=== PATIENT | male | born 1945 | race Hispanic/Latino ===

== ENCOUNTER 2021-06-26 08:25 | Day surgery (SDC) | payer OTHER ==
[2021-06-19 11:59] LABS: BASOPHILS % (AUTO) 0.7 % (0.0-5.0); EOSINOPHILS % (AUTO) 3.1 % (0.0-8.0); HEMATOCRIT 41.3 % (42-54); LYMPHOCYTES % (AUTO) 33.2 % (21.0-51.0); MEAN CORPUSCULAR HEMOGLOBIN 30.2 pg (27.0-33.0); MEAN CORPUSCULAR HGB CONC 33.4 g/dL (32.0-36.0); MEAN CORPUSCULAR VOLUME 90.4 fL (79-99); MONOCYTES % (AUTO) 9.5 % (3.0-13.0); NEUTROPHILS % (AUTO) 53.3 % (40.0-77.0); PLATELET COUNT (AUTO) 225 K/uL (130-400); RED BLOOD CELL COUNT(AUTO) 4.57 MIL/uL (4.50-6.20); WHITE BLOOD COUNT (AUTO) 4.2 K/uL (4.8-10.8)
[2021-06-19 12:06] LABS: CREATININE 0.6 mg/dL (0.5-1.5); POTASSIUM 4.3 mmol/L (3.5-5.1)
[2021-06-19 12:07] LABS: INR 1.04 (0.85-1.15); PROTHROMBIN TIME 11.3 SEC (9.6-11.6)
[2021-06-19 12:08] LABS: PARTIAL THROMBOPLASTIN TIME 27.1 SEC (26.3-35.5)
[2021-06-25 11:34] VITALS: BP 153/84
[~2021-06-26] VITALS: Ht 172.7 cm; Wt 94.6 kg
[2021-06-26] VITALS (14 sets, daily range): BP systolic 118–161; BP diastolic 59–86
[~2021-06-26 08:25] MED LIST: CEFAZOLIN SODIUM 1 GM VIAL IVP ONE; LISI20TA24 PO; METF-446 PO; PHEN100C23 PO
[2021-06-26] MEDS ORDERED: 0.9%NACL 1000ML 1,000 ML IV ONE (09:05)
[2021-06-26] MEDS ORDERED: CEFAZOLIN SODIUM 1 GM VIAL ONE (09:05)
[2021-06-26] MEDS ORDERED: LIDOCAINE PF 100MG/5ML (2%) SYRINGE 5ML ONE (11:13)
[2021-06-26] MEDS ORDERED: PROPOFOL 10 MG/ML 20ML VIAL IV ONE (11:14)
[2021-06-26] MEDS ORDERED: MIDAZOLAM HCL 1 MG/ML 2ML VIAL ONE (11:14)
[2021-06-26] MEDS ORDERED: ROCURONIUM 10MG/1ML SYR 10 MG/ML ML ONE (11:14)
[2021-06-26] MEDS ORDERED: FENTANYL CITRATE PF 50 MCG/1 ML 2ML VIAL ONE (11:17)
[2021-06-26] MEDS ORDERED: NEOMY SULF/BACITRAC ZN/POLY OINT 30GM TUBE TP ONE (11:18)
[2021-06-26] MEDS ORDERED: BUPIVACAINE/PF 0.25% 30ML VIAL IJ ONE (11:18)
[2021-06-26] MEDS ORDERED: GLYCOPYRROLATE 1 MG/5 ML SYRINGE ONE (12:15)
[2021-06-26] MEDS ORDERED: NEOSTIGMINE 5MG/5ML SYR IV ONE (12:15)
== END 2021-06-26 13:45 | disposition home or self-care (01) ==
LOC: DAH 08:25
PROVIDERS: ATTEND Urology
DX: N47.1 Phimosis (principal); I10 Essential (primary) hypertension; E11.9 Type 2 diabetes mellitus without complications; M19.90 Unspecified osteoarthritis, unspecified site; Z79.01 Long term (current) use of anticoagulants; Z79.899 Other long term (current) drug therapy
CPT/HCPCS: 36415; 54161; 71045; 80048; 80185; 82948; 85025; 85610; 85730; 87635; 93005; 99282; A4215 ×2; A4221 ×2; A4222 ×2; A4223 ×2; A4600; A4606; A4663 ×2; A6260; C9803; J0690; J2001; J2250; J2704; J2710; J3010; J3490 ×2; J7030

== ENCOUNTER 2021-06-26 17:08 | Emergency (ER) | payer OTHER ==
[~2021-06-26] VITALS: Ht 172.7 cm; Wt 94.3 kg
[~2021-06-26 17:08] MED LIST changes: -CEFAZOLIN SODIUM 1 GM VIAL IVP ONE
[2021-06-26 17:09] VITALS: BP 152/87
== END 2021-06-26 17:44 | disposition home or self-care (01) ==
LOC: EDH 17:08
DX: N99.89 Other postprocedural complications and disorders of genitourinary system (principal); R33.9 Retention of urine, unspecified; E11.9 Type 2 diabetes mellitus without complications; Z79.84 Long term (current) use of oral hypoglycemic drugs; Z79.899 Other long term (current) drug therapy